=== PATIENT | male | born 1955 | race Caucasian/White ===

== ENCOUNTER → 2017-09-12 | Outpatient (CLI) | payer BC ==
--- NOTE | 2017-09-13 21:01 | US ---
EXAMINATION TYPE: US renals and bladder DATE OF EXAM: 09/12/2017 COMPARISON: NONE CLINICAL HISTORY: Lower Abd Pain, R10.30. Right flank tenderness, left nephrectomy 30 years ago, hist ory of renal CA EXAM MEASUREMENTS: Right Kidney: 15.0 x 6.2 x 7.3 cm Left Kidney: surgically absent Right Kidney: no hydro or masses seen Left Kidney: surgically absent Bladder: wnl Right Jet seen: yes There is no evidence for hydronephrosis at this point in time. No nephrolithiasis is seen. No alexandra s are identified an remnant right kidney. The urinary bladder is anechoic. Distal right ureter jet i s seen. Scanning of left renal fossa shows no suspicious recurrent tissue. IMPRESSION: No hydronephrosis in the remnant right kidney.
== END | disposition home or self-care (01) ==
LOC: RADUSMAIN 17:39
PROVIDERS: ATTEND Internal Medicine Geriatric Medicine
DX: R10.30 Lower abdominal pain, unspecified (principal)
CPT/HCPCS: 76770